=== PATIENT | female | born 1985 | race Hispanic/Latino ===

== ENCOUNTER 2021-09-12 13:00 | Emergency (ER) | payer OTHER ==
[~2021-09-12] VITALS: Ht 170.2 cm; Wt 90.7 kg
[2021-09-12] MEDS ORDERED: ACETAMINOPHEN-1 EAC4 PO (13:29)
[2021-09-12] MEDS ORDERED: IBUPROFEN IB200 MG PO (13:29)
[2021-09-12] MEDS ORDERED: ONDANSETRON ODT4 MG PO (13:29)
== END 2021-09-12 14:55 | disposition home or self-care (01) ==
LOC: FSED 13:05
DX: S93.402A Sprain of unspecified ligament of left ankle, initial encounter (principal); X50.1XXA Overexertion from prolonged static or awkward postures, initial encounter
CPT/HCPCS: 99283